=== PATIENT | male | born 1955 | race Caucasian/White ===

== ENCOUNTER 2017-10-23 14:25 | Inpatient (IN) | payer OTHER ==
--- NOTE | 2017-10-23 14:24 | EDPHY ---
H & P Time Seen by Provider: 10/23/17 14:24 Constitutional: Initial Vital Signs Temperature (C) 38.7 C H 10/23/17 14:25 Heart Rate 157 H 10/23/17 14:25 Respiratory Rate 30 H 10/23/17 14:25 Blood Pressure 120/88 H 10/23/17 14:25 O2 Sat (%) 85 L 10/23/17 14:25 O2 Delivery Mode Ventilator O2 (L/minute) 15 Allergies/Adverse Reactions: No Known Drug Allergies Allergy (Verified 10/23/17 15:49) Medical Decision Making - Diagnostics Imaging Results: Imaging Impressions Chest X-Ray 10/23/17 14:28 Impression: 1. Central line on the right appears to be extravascular into the right upper lung with large right-sided pneumothorax. The ER physician was aware of this finding. 2. ET tube and NG tube in good position. Abdomen CT 10/23/17 14:49 Impression: 1. Cirrhosis, with mild splenomegaly and diffusely heterogeneous enhancement of the liver and spleen. No definite focal lesions or ascites. 2. Atrophic pancreas, with nonspecific peripancreatic and retroperitoneal adenopathy. 3. Atherosclerotic aorta, without aneurysm. 4. Mild constipation. 5. No bowel obstruction or abdominal/pelvic abscess or fluid collection. Findings and recommendations discussed with Emergency Department physician, Jas Curry M.D., at 1620 hours, on October 23, 2017. Final report concurs with initial preliminary interpretation. Chest CT 10/23/17 14:50 Impression: 1. Right chest tube, with small residual right pneumothorax. 2. Right middle lobe and right lower lobe atelectasis, with moderate right hemothorax. 3. Left lower lobe complete opacification consistent with pneumonia. 4. Endotracheal tube above the kash. 5. Nasogastric tube in the stomach. Findings and recommendations discussed with Emergency Department physician, Jas Curry M.D., at 1620 hours, on October 23, 2017. Final report concurs with initial preliminary interpretation. Head CT 10/23/17 14:50 Impression: Negative. No acute intracranial hemorrhage, swelling or mass effect. Findings discussed with Emergency Department physician, Jas Curry MD, on , 16:14. Imaging: Discussed imaging studies w/ banquet server on call Radiologist, I viewed and interpreted images myself ED Course/Re-evaluation: CHIEF COMPLAINT: Altered mental status, nausea, vomiting HISTORY OF PRESENT ILLNESS: The patient is a 60 y/o male with a history of Hepatitis C arriving emergently via EMS for altered mental status, nausea, and vomiting onset yesterday. Per EMS , the family states that the patient arrived from [place] on Monday and appeared healthy. He vomited several times yesterday but drastically declined today. The family denies alcohol or drug use. EMS reports that the patient appears malnourished and has mottled skin on his abdomen. While en route to the emergency department the patient had O2Sats of 84% and was tachycardic. He was able to slowly talk to EMS but is a poor historian due to the altered mental status. Upon arrival, he states he is hot but provides no other information. REVIEW OF SYSTEMS: Unable to obtain due to patient's altered mental status PHYSICAL EXAM: HR, BP, O2 Sat, RR. Temp noted General Appearance: Lethargic, toxic appearing. Head: Atraumatic without scalp tenderness or obvious injury Eyes: Pupils equal, round, reactive to light and accommodation, EOMI, no trauma , no injection. Ears: Clear bilaterally, no perforation, normal landmarks Nose: Atraumatic, no rhinorrhea, clear. Throat: There is no erythema or exudates, no lesions, normal tonsils, very dry membranes moist. Neck: Supple, nontender, no lymphadenopathy. Respiratory: Accessory muscle use, diminished left-side breath sounds. No retractions, no distress, no wheezes. Cardiovascular: Regular rate and rhythm, no murmurs, rubs, or gallops. Bilateral carotid, radial, dorsalis pedis, and posterior tibial pulses intact. Good capillary refill all extremities. Gastrointestinal: Abdomen is soft, nontender, non-distended, no masses, no rebound, no guarding, no peritoneal signs. Musculoskeletal: Normal active ROM of all extremities, atraumatic. Neurological: Lethargic, not oriented. Skin: Mottled skin throughout, scattered abscesses, pale. No rashes, good turgor , no nodules on palpation. 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 See hard copy and/or "tracemaster" electronic copy for interpretation. Head CT: Normal Chest CT: Left lower lobe consolidated. Right lung is starting to be expanded but there is fluid present. Abdominopelvic CT: The liver spleen and pancreas are enhancing abnormally. This could be DIC vs. severe sepsis. There are no abscesses. Critical care time spent by me, Dr. Curry, exclusively with this patient was 90 minutes, exclusive of PA time and exclusive of procedures. The organ system at risk was respiratory and cardiovascular and I gave IVF, antibiotics, intubated, chest tube placement, and transferred the patient to the ICU to prevent worsening of the patients condition. DIFFERENTIAL DIAGNOSIS: The differential diagnosis for the patient's fever included but was not limited to pneumonia, urinary tract infection, viral syndrome, meningitis, and sepsis. MEDICAL DECISION MAKING: The patient is a 60 y/o male with a history of Hepatitis C arriving emergently via EMS for altered mental status, nausea, and vomiting onset yesterday. On exam the patient has mottled skin all over and scattered abscesses. He is tachycardic, but I doubt he is in atrial fibrillation. He is febrile, hypoxic, has diminished left-sided breath sounds, and using accessory muscles to breathe ; patient will be placed on a BiPAP for hypoxia. Patient is most likely septic. 2L IV NS, 1gm IV Rocephin, 1gm IV Vancomycin administered. Chest x-ray, head/ chest/abdomen/pelvic CT ordered. 1425: I met EMS upon arrival 1427: HR: 160, BP: 120/88, O2Sats: 85%, Temp: 38.7 degrees 1429: I interpreted EKG as sinus tachycardia with a rate of 156 1432: BiPAP with O2Sats of 87%. Patient is in respiratory distress, tachycardic , febrile, and toxic appearing. He will need to be intubated. 1435: Patient had appropriate response to Clark catheter placement 1437: Procedure: Rapid sequence intubation. Indication for the procedure was airway protection, respiratory distress. The patient was preoxygenated with 100% oxygen by BiPAP. The patient was given the following IV medications: 20mg IV Etomidate, 100mg IV succinylcholine. The patient was orally endotracheally intubated under direct visualization with a 7.5 ETT. In line stabilization was performed during the procedure. Tracheal intubation was confirmed with misting on the tube; breath sounds were auscultated equally bilaterally; appropriate color change with [place] CO2 detector. Chest X-ray shows ETT in good position. The procedure was performed by myself, Dr. Curry 1440: HR: 191, BP:129/92 1442: 75mcg IV Fentanyl administered 1446: HR: 173, BP: 129/92, O2Sats: 95% 1450: 12mg IV Adenosine administered as patient could be in supraventricular tachycardia. 1452: 100mg IV Propofol, Propofol drip, and 50mg IV Ketamine used to sedate the patient. 1453: NG tube placed. 1454: Transient blood pressure drop after sedation medication administered. 1455: Patient's lactate is 12.2; 1L IV LR administered 1456: HR: 157, BP: 83/59, O2Sats: 84% 1500: Consulted with hospitalist service, Dr. Nicole accepts admission of this patient 1504: 0.1mcg IV Phenylephrine push dose administered due to patient's hypotension. 1510: 50mg IV Ketamine administered 1511: Patient is in septic shock, central line will be placed. Procedure: Ultrasound guidance. Using the linear probe covered in a sterile sheath, a short axis of the vein was obtained. The vein was completely compressible and was identified as separate from the adjacent non-compressible arterial structure. Under real-time guidance, the introducer needle was observed up to the vein, and then punctured it. Indication: Septic shock. A timeout was observed. Full maximal sterile barrier technique was used including cap, gown, sterile gloves, large sheet, hand washing and chlorhexidine prep. The area was anesthetized with 1% lidocaine. A 7 [place] triple lumen was placed in the left internal jugular vein using standard Seldinger technique. There were no complications. Blood return low pressure, dark blood. Patient tolerated procedure well. CXR results: Inappropriate line placement, and right chest pneumothorax. Xray was interpreted by myself. Radiologist interpretation is pending. The procedure was performed by myself, Dr. Curry 1514: 0.2mcg IV Phenylephrine push dose administered 1518: IV Phenylephrine drip administered 1519: HR: 181, BP: 85/63, O2Sats: 78; Patient is not perfusing well. 1520: 50mg IV Ketamine administered 1521: I interpreted chest x-ray at bedside, patient has a right sided pneumothorax and there is an infection in the left lung. Central line removed. Chest tube will be placed. 1524: Procedure: Chest tube placement. Indication: Right-sided pneumothorax. A timeout was observed. Full maximal sterile barrier technique was used including cap, gown, sterile gloves, large sheet, hand washing and chlorhexidine prep. The area was anesthetized with 1% lidocaine with epinephrine. A 3cm skin incision was made on top of the right 5th rib at the mid-clavicular line. A 28 [place] Citizen chest tube was placed carefully over the top of the right 5th rib on the right side. The tube was sutured in place and dressed with an occlusive Vaseline gauze then dry sterile dressing. Post placement chest x-ray demonstrated the tube to be in the appropriate position. Following placement of the tube the patient's condition improved. The patient tolerated the procedure well and there were no complications. The procedure was performed by myself. 1529: Clots are expressed from the chest tube. General surgeon will be consulted to rule out an injured right internal jugular. 1531: Patient's 5th liter of fluid administered 1532: Consulted with Dr. Pascual, general surgeon, regarding this patient. He agrees to consult on this patient during his admission. 1532: HR: 170, BP: 94/69, O2Sats: 76% 1534: Patient placed on a ketamine and norepinephrine drip. He is safe to go to CT and the unit. 1540: HR: 192, BP: 107/67, O2Sats: 75% 1546: Spoke with patient's family regarding patient 1556: Consulted with Dr. Nicole regarding this patient. 1613: Spoke with radiologist regarding patient's imaging findings. Head CT is normal per Dr. Dye. 1621: Spoke with Dr. Gilbert regarding patient's CT. The liver spleen and pancreas are enhancing abnormally. This could be DIC vs. severe sepsis. There are no abscesses. I have communicated these findings to Dr. Nicole. - Data Points Laboratory Results: Laboratory Results 10/23/17 14:31 10/23/17 14:31 10/23/17 10/23/17 10/23/17 14:31 14:31 14:31 WBC RBC Hgb Hct MCV MCH MCHC RDW Plt Count MPV Neut % (Auto) Lymph % (Auto) Johnson % (Auto) Eos % (Auto) Baso % (Auto) Nucleat RBC Rel Count Absolute Neuts (auto) Absolute Lymphs (auto) Absolute Monos (auto) Absolute Eos (auto) Absolute Basos (auto) Absolute Nucleated RBC Immature Gran % Seg Neutrophils % Band Neutrophils % Lymphocytes % Monocytes % Eosinophils % Basophils % Metamyelocytes % Myelocytes % Promyelocytes % Blast Cells % Immature Gran # Absolute Seg Neuts Absolute Band Neuts Absolute Lymphocytes Absolute Monocytes Absolute Eosinophils Absolute Basophils Absolute Metamyelocyte Absolute Myelocytes Absolute Promyelocytes Absolute Plasma Cells Absolute Blast Cells Plasma Cells % Platelet Estimate PT 22.1 SEC H SEC (12.0-15.0) INR 1.93 H (0.83-1.16) APTT 30.3 SEC SEC (23.0-38.0) VBG Lactic Acid Sodium 136 mEq/L mEq/L (135-145) Potassium 3.5 mEq/L mEq/L (3.3-5.0) Chloride 97 mEq/L mEq/L (97-110) Carbon Dioxide 15 mEq/l L mEq/l (22-31) Anion Gap 24 mEq/L H mEq/L (8-16) BUN 38 mg/dL H mg/dL (7-23) Creatinine 0.9 mg/dL mg/dL (0.7-1.3) Estimated GFR > 60 Glucose 70 mg/dL mg/dL (70-100) Calcium 9.0 mg/dL mg/dL (8.5-10.4) Total Bilirubin 5.4 mg/dL H mg/dL (0.1-1.4) Conjugated Bilirubin 3.9 mg/dL H mg/dL (0.0-0.5) Unconjugated Bilirubin 1.5 mg/dL H mg/dL (0.0-1.1) Ammonia 73.0 uMOL/L H uMOL/L (9.0-30.0) 10/23/17 10/23/17 14:31 14:31 WBC 1.14 10^3/uL L 10^3/uL (3.80-9.50) RBC 5.56 10^6/uL 10^6/uL (4.40-6.38) Hgb 16.2 g/dL g/dL (13.7-17.5) Hct 46.8 % % (40.0-51.0) MCV 84.2 fL fL (81.5-99.8) MCH 29.1 pg pg (27.9-34.1) MCHC 34.6 g/dL g/dL (32.4-36.7) RDW 14.8 % % (11.5-15.2) Plt Count 75 10^3/uL L 10^3/uL (150-400) MPV 11.5 fL fL (8.7-11.7) Neut % (Auto) 40.3 % % (39.3-74.2) Lymph % (Auto) 50.0 % H % (15.0-45.0) Johnson % (Auto) 7.0 % % (4.5-13.0) Eos % (Auto) 0.9 % % (0.6-7.6) Baso % (Auto) 0.9 % % (0.3-1.7) Nucleat RBC Rel Count 0.0 % % (0.0-0.2) Absolute Neuts (auto) 0.46 10^3/uL L 10^3/uL (1.70-6.50) Absolute Lymphs (auto) 0.57 10^3/uL L 10^3/uL (1.00-3.00) Absolute Monos (auto) 0.08 10^3/uL L 10^3/uL (0.30-0.80) Absolute Eos (auto) 0.01 10^3/uL L 10^3/uL (0.03-0.40) Absolute Basos (auto) 0.01 10^3/uL L 10^3/uL (0.02-0.10) Absolute Nucleated RBC 0.00 10^3/uL 10^3/uL (0-0.01) Immature Gran % 0.9 % % (0.0-1.1) Seg Neutrophils % 15.3 % % Band Neutrophils % 1.0 % % Lymphocytes % 59.2 % % Monocytes % 22.5 % % Eosinophils % 2.0 % % Basophils % 0 % % Metamyelocytes % 0 % % Myelocytes % 0 % % Promyelocytes % 0 % % Blast Cells % 0 % % Immature Gran # 0.01 10^3/uL 10^3/uL (0.00-0.10) Absolute Seg Neuts 0.18 10^/uL L 10^/uL (1.70-6.50) Absolute Band Neuts 0.01 10^3/uL 10^3/uL (0.00-0.70) Absolute Lymphocytes 0.70 10^3/uL L 10^3/uL (1.00-3.00) Absolute Monocytes 0.27 10^3/uL L 10^3/uL (0.30-0.80) Absolute Eosinophils 0.02 10^3/uL L 10^3/uL (0.03-0.40) Absolute Basophils 0.00 10^3/uL L 10^3/uL (0.02-0.10) Absolute Metamyelocyte 0.00 10^3/mL 10^3/mL (0.00-0.00) Absolute Myelocytes 0.00 10^3/mL 10^3/mL (0.00-0.00) Absolute Promyelocytes 0.00 10^3/uL 10^3/uL (0.00-0.00) Absolute Plasma Cells 0.00 10^3/uL 10^3/uL (0.00-0.00) Absolute Blast Cells 0.00 10^3/uL 10^3/uL (0.00-0.00) Plasma Cells % 0 % % Platelet Estimate DECREASED L (ADEQ) PT INR APTT VBG Lactic Acid 12.2 mmol/L H mmol/L (0.7-2.1) Sodium Potassium Chloride Carbon Dioxide Anion Gap BUN Creatinine Estimated GFR Glucose Calcium Total Bilirubin Conjugated Bilirubin Unconjugated Bilirubin Ammonia Medications Given: Phenylephrine HCl 50 mg/ (Sodium Chloride) 250 mls @ 0 mls/hr IV CONT PATSY; Per Protocol PRN Reason: Protocol Stop: 04/21/18 15:59 Last Admin: 10/23/17 16:32 Dose: 250 mls Norepinephrine/Sodium Chloride (Norepinephrine 8 Mcg/Ml (Premix)) 500 mls @ 0 mls/hr IV CONT PATSY; Titrate PRN Reason: Protocol Stop: 04/21/18 15:59 Last Admin: 10/23/17 19:41 Dose: 500 mls Sodium Chloride (Ns) 1,000 mls @ 125 mls/hr IV CONT PATSY Stop: 04/21/18 15:59 Last Admin: 10/23/17 19:41 Dose: 1,000 mls Piperacillin/Tazobactam/Dextrose (Zosyn (Premix)) 100 mls @ 200 mls/hr IV Q6HRS PATSY PRN Reason: Protocol Stop: 11/22/17 16:29 Last Admin: 10/23/17 16:32 Dose: 100 mls Vasopressin 25 unit/ Sodium (Chloride) 251.25 mls @ 24 mls/hr IV CONT PATSY Stop: 04/21/18 17:29 Last Admin: 10/23/17 17:21 Dose: 251.25 mls Sodium Bicarbonate 150 meq/ (Dextrose) 1,000 mls @ 100 mls/hr IV CONT PATSY PRN Reason: As Directed Stop: 04/21/18 17:59 Last Admin: 10/23/17 17:47 Dose: 1,000 mls Epinephrine HCl 1 mg/ Sodium (Chloride) 251 mls @ 0 mls/hr IV CONT PATSY; Per Protocol PRN Reason: Protocol Stop: 04/21/18 17:59 Last Admin: 10/23/17 18:04 Dose: 251 mls Discontinued Medications Adenosine (Adenosine) 12 mg IVP EDNOW ONE Stop: 10/23/17 14:45 Last Admin: 10/23/17 14:44 Dose: 12 mg Amiodarone HCl (Amiodarone Hcl) 150 mg IV ONCE ONE Stop: 10/23/17 16:31 Last Admin: 10/23/17 16:30 Dose: 150 mg Etomidate (Etomidate) 20 mg IVP EDNOW ONE Stop: 10/23/17 14:35 Last Admin: 10/23/17 14:34 Dose: 20 mg Fentanyl (Sublimaze) 75 mcg IVP EDNOW ONE Stop: 10/23/17 14:43 Last Admin: 10/23/17 14:42 Dose: 75 mcg Hydrocortisone (Solucortef) 100 mg IVP ONCE ONE Stop: 10/23/17 18:16 Last Admin: 10/23/17 18:05 Dose: 100 mg Vancomycin/Sodium Chloride (Vancomycin 1 Gm (Premix)) 250 mls @ 250 mls/hr IV EDNOW ONE PRN Reason: Protocol Stop: 10/23/17 15:28 Last Admin: 10/23/17 14:29 Dose: 250 mls Ceftriaxone Sodium/Dextrose (Rocephin 1 Gm (Premix)) 50 mls @ 100 mls/hr IV EDNOW ONE PRN Reason: Protocol Stop: 10/23/17 15:00 Last Admin: 10/23/17 14:31 Dose: 50 mls Propofol (Diprivan 10 Mg/Ml (Premix)) 100 mls @ 0 mls/hr IV CONT PATSY; Titrate PRN Reason: Protocol Stop: 04/21/18 14:59 Last Admin: 10/23/17 16:26 Dose: 100 mls Norepinephrine/Sodium Chloride (Norepinephrine 8 Mcg/Ml (Premix)) 500 mls @ 0 mls/hr IV EDNOW ONE; Per Protocol PRN Reason: Protocol Stop: 10/23/17 15:13 Last Admin: 10/23/17 15:12 Dose: 500 mls Albumin Human (Flexbumin 25 % (Premix)) 100 mls @ 0 mls/hr IV ONCE ONE PRN Reason: As Directed Stop: 10/23/17 17:16 Last Admin: 10/23/17 17:21 Dose: 100 mls Vecuronium [place] 50 mg/ (Dextrose) 50 mls @ 0 mls/hr IV CONT PATSY; Per Protocol PRN Reason: Protocol Stop: 04/21/18 17:59 Last Admin: 10/23/17 18:05 Dose: 50 mls Ketamine HCl (Ketamine) 50 mg IVP EDNOW ONE Stop: 10/23/17 14:54 Last Admin: 10/23/17 14:54 Dose: 50 mg Ketamine HCl (Ketamine) 50 mg IVP EDNOW ONE Stop: 10/23/17 15:11 Last Admin: 10/23/17 15:10 Dose: 50 mg Sodium Bicarbonate (Sodium Bicarbonate) 50 meq IVP ONCE ONE Stop: 10/23/17 17:46 Last Admin: 10/23/17 18:06 Dose: 50 meq Succinylcholine Chloride (Quelicin) 100 mg IVP EDNOW ONE Stop: 10/23/17 14:37 Last Admin: 10/23/17 14:36 Dose: 100 mg Departure - Departure Disposition: [facility] Inpatient Acute Clinical Impression: Dehydration, Severe sepsis, Septic shock, Pneumothorax, right Fever Qualifiers: Fever type: due to other condition Qualified Code(s): R50.81 - Fever presenting with conditions classified elsewhere Pneumonia of left lung due to infectious organism Qualifiers: Lung location: unspecified part of lung Qualified Code(s): J18.9 - Pneumonia, unspecified organism Altered mental status Qualifiers: Altered mental status type: unspecified Qualified Code(s): R41.82 - Altered mental status, unspecified Condition: Serious Report Scribed for: Jas Curry Report Scribed by: Crissy Daly Date of Report: 10/23/17 Time of Report: 14:24
[2017-10-23] MEDS ORDERED: VANCOMYCIN HCL/NORMAL SALINE 250 ML IV ONE (14:29)
[2017-10-23] MEDS ORDERED: cefTRIAXone 1 GM/DEXTROSE 1 GM/50 ML BAG IV ONE (14:30)
[2017-10-23] MEDS ORDERED: ETOMIDATE 40 MG/20 ML INJ IVP ONE (14:34)
[2017-10-23] MEDS ORDERED: SUCCINYLCHOLINE CHLORIDE 200 MG/10 ML SYR IVP ONE ×2 (14:36→18:25)
[2017-10-23] MEDS ORDERED: PROPOFOL/EMULSION 1,000 MG/100 ML BOTTLE IV ONE (14:37)
[2017-10-23] MEDS ORDERED: fentaNYL 100 MCG/2 ML INJ IVP ONE (14:42)
[2017-10-23] MEDS ORDERED: ADENOSINE 6 MG/2 ML VIAL IVP ONE (14:44)
[2017-10-23 14:45] LABS: PLATELET COUNT 75 10^3/uL (150-400)
[2017-10-23] MEDS ORDERED: ADENOSINE 6 MG/2 ML VIAL ONE (14:46)
[2017-10-23] MEDS ORDERED: KETAMINE 200 MG/20 ML VIAL IVP ONE (14:53)
[2017-10-23] MEDS ORDERED: ACETAMINOPHEN 325 MG SUPP PR ONE (14:59)
[2017-10-23] MEDS ORDERED: PROPOFOL/EMULSION 100 ML IV SCH ×2 (15:00→16:57)
[2017-10-23 15:01] LABS: INR 1.93 (0.83-1.16); PROTIME(PATIENT) 22.1 SEC (12.0-15.0)
[2017-10-23] MEDS ORDERED: PHENYLEPHRINE HCL 100 MCG/ML SYR IVP ONE (15:01)
[2017-10-23] MEDS ORDERED: PHENYLEPHRINE 10 MG/ML SDV ONE (15:02)
[2017-10-23] MEDS ORDERED: KETAMINE 500 MG/10 ML VIAL IVP ONE (15:10)
[2017-10-23] MEDS ORDERED: NOREPINEPHRINE/NS 500 ML IV ONE (15:12)
[2017-10-23] MEDS ORDERED: IOPAMIDOL (ISOVUE-300) 100 ML BTL ONE (15:19)
[2017-10-23] MEDS ORDERED: NOREPINEPHRINE BITARTRATE 4 MG in D5W 500 ML IV SCH (15:30)
[2017-10-23] MEDS ORDERED: LR 2,000 ML IV ONE ×2 (15:39)
[2017-10-23] MEDS ORDERED: ACETAMINOPHEN 650 MG SUPP PR PRN (15:58)
[2017-10-23] MEDS ORDERED: fentaNYL 100 MCG/2 ML INJ IVP PRN (15:58)
[2017-10-23] MEDS ORDERED: MIDAZOLAM 2 MG/2 ML VIAL IVP PRN (15:58)
[2017-10-23] MEDS ORDERED: KETAMINE 500 MG in NS 500 ML IV ONE (16:00)
[2017-10-23] MEDS ORDERED: VASOPRESSIN/DEXTROSE 250 ML IV SCH (16:00)
[2017-10-23] MEDS ORDERED: PHENYLEPHRINE HCL 50 MG in NS 250 ML IV SCH (16:00)
[2017-10-23] MEDS: NOREPINEPHRINE/NS 500 ML IV SCH ×2 (16:27→19:41)
[2017-10-23] MEDS: NS 1,000 ML IV SCH ×2 (16:28→19:41)
[2017-10-23] MEDS ORDERED: AMIODARONE HCL 150 MG/3 ML VIAL IV ONE (16:30)
[2017-10-23] MEDS ORDERED: PIPERACILLIN/TAZO 4.5 GM/DEX 100 ML IV SCH ×2 (16:30→18:00)
--- NOTE | 2017-10-23 16:50 | ECHO ---
[email or web address] [address] [address] Main: [phone] Fax: Transthoracic Echocardiogram Name: DOLLY NAGY MR#: [id number] Study Date: 10/23/2017 Study Time: 04:23 PM Date of : 1955 Age: 62 year(s) Height: 167.6 cm (66 in.) Weight: 67.13 kg (148 lb.) BSA: 1.76 m2 Gender: Male Examination: Echo Indication: Septic Shock Image Quality: Contrast: Requested by: Crystal Nicole BP: 119 mmHg/55 mmHg Heart Rate: Rhythm: Atrial fibrillation Indication: Septic Shock Procedure Staff Human Resource Analyst: Raul Ayala RDCS Reading Physician: Jordan Garcia MD Requesting Provider: Conclusions: Ejection fraction 71%. No pericardial effusion. Measurements: Chambers Valvular Assessment AV/MV Valvular Assessment TV/PV Normal Normal Normal Name Value Range Name Value Range Name Value Range Ao Jemma (MM): 2.4 cm (2.2 cm-3.7 cm) IVSd (2D): 0.9 cm (0.6 cm-1.1 cm) LVDd (2D): 3.8 cm (4.2 cm-5.9 cm) LVDs (2D): 2.3 cm (2.1 cm-4 cm) LVPWd (2D): 1.0 cm (0.6 cm-1 cm) LVEF (2D): 71 (>=54 %) Continued Measurements: Findings: Left Ventricle: Normal global systolic LV function. EF is 71 %. Mitral Valve: The mitral valve is normal in appearance and function. Aortic Valve: The aortic valve is tri-leaflet and functions normally. Pericardium: No pericardial effusion. Patient: DOLLY NAGY Study Date: 10/23/2017 Page 1 of 2 04:23 PM Exam Comments: This is a limited echo to evaluate LV function and pericardial effusion. Exam was originally ordered full study but due to patient declining condition a limited was performed. . (No Signature Object) Patient: DOLLY NAGY Study Date: 10/23/2017 Page 2 of 2 04:23 PM [id number]
--- NOTE | 2017-10-23 16:54 | ASMTCMCOM ---
CM Note CM Note Notes: Patient presents to the ER per EMS appearing septic. I have met with his niece Marge to provide support and ultimately escort her to the ICU. Patient lives in [facility] and has been in [place] since Monday, 10/21. He is here to visit his mother who resides at [facility]. Marge explains that patient began feeling poorly on Monday (see ER report) and that she called 911 today when she arrived at [facility] and found patient to be "much sicker". Patient has a history of hepatitic C and IV drug use (many years ago), and Marge believes patient has been sober for many years since. Marge is available prn for contact and will be checking in re patient's condition. [place] mentioning; Marge states she is an CIV[employer] TRANSPORTATION ENGINEER and works/lives in [place] Date Signed: 10/23/2017 04:54 PM Electronically Signed By:Holly Jose RN
[2017-10-23] MEDS ORDERED: AMIODARONE A.FIB-6HR INFSN (ORDER 2/3) PREMIX IV ONE (17:00)
[2017-10-23] MEDS ORDERED: ALBUMIN 25% 100 ML SOLN IV ONE (17:04)
[2017-10-23] MEDS ORDERED: ALBUMIN 25% 100 ML IV ONE ×2 (17:15→17:30)
[2017-10-23] MEDS ORDERED: AMIODARONE HCL 150 MG/100 ML BAG (1.5 MG/ML) IV ONE (17:18)
[2017-10-23] MEDS ORDERED: VECURONIUM BROMIDE 10 MG VIAL ONE (17:21)
[2017-10-23] MEDS ORDERED: SODIUM BICARBONATE 50 MEQ/50 ML SYR ONE (17:28)
--- NOTE | 2017-10-23 17:28 | CPEKG ---
Heart Rate: 137 RR Interval: 438 P-R Interval: 196 QRSD Interval: 72 QT Interval: 216 QTC Interval: 326 P [place]: 80 QRS [place]: 70 T Wave [place]: 269 EKG Severity - BORDERLINE ECG - EKG Impression: SINUS TACHYCARDIA EKG Impression: BORDERLINE T ABNORMALITIES, DIFFUSE LEADS Electronically Signed By: Valdemar Matias 24-Oct-2017 10:36:28
[2017-10-23] MEDS ORDERED: VASOPRESSIN 25 UNIT in NS 250 ML IV SCH (17:30)
[2017-10-23] MEDS ORDERED: VECURONIUM BROMIDE 10 MG VIAL IVP ONE (17:30)
[2017-10-23] MEDS ORDERED: SODIUM BICARBONATE 50 MEQ/50 ML SYR IVP ONE (17:45)
[2017-10-23] MEDS ORDERED: SODIUM BICARBONATE 150 MEQ in D5W 1,000 ML IV SCH (18:00)
[2017-10-23] MEDS ORDERED: EPINEPHrine 1 MG in NS 250 ML IV SCH (18:00)
[2017-10-23] MEDS ORDERED: VECURONIUM BROMIDE 50 MG in D5W 50 ML IV SCH ×2 (18:00→23:30)
[2017-10-23] MEDS ORDERED: HYDROCORTISONE 100 MG/2 ML VIAL ONE (18:04)
[2017-10-23] MEDS ORDERED: HYDROCORTISONE 100 MG/2 ML VIAL IVP ONE (18:15)
[2017-10-23] MEDS ORDERED: ETOMIDATE 40 MG/20 ML INJ ONE (18:23)
[2017-10-23] MEDS ORDERED: KETAMINE 200 MG/20 ML VIAL ONE (18:24)
[2017-10-23] MEDS ORDERED: fentaNYL 100 MCG/2 ML INJ ONE (18:26)
[2017-10-23] MEDS ORDERED: VECURONIUM BROMIDE 50 MG in NS 50 ML IV SCH (18:45)
--- NOTE | 2017-10-23 18:52 | PDGENHP ---
History and Physical - Chief Complaint confusion - History of Present Illness 62 yo M with PMH of hepatitis C [place] presenting with confusion. Per report given to ER by family, patient had been in [place] since Monday and doing fairly well until he began to have n/v yesterday. Today he was noted to be confused and ill appearing and was brought to ER for further evaluation. In ER, he was not responding to questions and was noted to be mottled, hypotensive and hypoxic--initially sats were in mid 80s on 15L NRB. He was urgently intubated and due to continued hypotension a central line was attempted. Unfortunately this led to a PTX as line was extra vascular and patient had further desaturations--chest tube was placed in ER. Patient transferred to ICU with HR in the high 100s (up to 200 and appearing c/w svt), continued low saturations and hypotensive. He ultimately received adenosine, amiodarone, shocks x 2 for unstable tachycardia, 4 pressors, chest tube repositioning and then paralyzed and proned. His heart rate subsequent to all of that stabilized in the low 100s, BP improved and o2 sats on vent with paralytics onboard improved to 80%. History Information - Allergies/Home Medication List Allergies/Adverse Reactions: No Known Drug Allergies Allergy (Verified 10/23/17 15:49) I have personally reviewed and updated: family history, medical history, social history, surgical history Past Medical History: unobtainable 2/2 patients mental status - Past Medical History Additional medical history: hepatitis c - Social History Additional social history: per family, no drinking or drug use Review of Systems Review of Systems: unobtainable 2/2 patients mental status Physical Exam Physical Exam: Temp Pulse Resp BP Pulse Ox 38.7 C H 189 H 29 H 120/88 H 83 L 10/23/17 15:40 10/23/17 16:02 10/23/17 16:02 10/23/17 15:40 10/23/17 18:05 O2 (L/minute) 15 FIO2 (%) 100 Constitutional: chronically ill appearing, unkempt Eyes: PERRL, icteric sclera Ears, Nose, Mouth, Throat: poor dentition, dry mucous membranes Cardiovascular: tachycardia, No edema Respiratory: reduced air movement, bronchial breath sounds Gastrointestinal: normoactive bowel sounds, distension Genitourinary: celestin in urethra Skin: mottled, abrasion Musculoskeletal: No asymmetric calves Neurologic: other (intubated, sedated) Lab Data & Imaging Review 10/23/17 14:31 10/23/17 14:31 WBC 1.14 10^3/uL (3.80-9.50) L 10/23/17 14:31 RBC 5.56 10^6/uL (4.40-6.38) 10/23/17 14:31 Hgb 16.2 g/dL (13.7-17.5) 10/23/17 14:31 Hct 46.8 % (40.0-51.0) 10/23/17 14:31 MCV 84.2 fL (81.5-99.8) 10/23/17 14:31 MCH 29.1 pg (27.9-34.1) 10/23/17 14:31 MCHC 34.6 g/dL (32.4-36.7) 10/23/17 14:31 RDW 14.8 % (11.5-15.2) 10/23/17 14:31 Plt Count 75 10^3/uL (150-400) L 10/23/17 14:31 MPV 11.5 fL (8.7-11.7) 10/23/17 14:31 Neut % (Auto) 40.3 % (39.3-74.2) 10/23/17 14:31 Lymph % (Auto) 50.0 % (15.0-45.0) H 10/23/17 14:31 [place] % (Auto) 7.0 % (4.5-13.0) 10/23/17 14:31 Eos % (Auto) 0.9 % (0.6-7.6) 10/23/17 14:31 Baso % (Auto) 0.9 % (0.3-1.7) 10/23/17 14:31 Nucleat RBC Rel Count 0.0 % (0.0-0.2) 10/23/17 14:31 Absolute Neuts (auto) 0.46 10^3/uL (1.70-6.50) L 10/23/17 14:31 Absolute Lymphs (auto) 0.57 10^3/uL (1.00-3.00) L 10/23/17 14:31 Absolute Monos (auto) 0.08 10^3/uL (0.30-0.80) L 10/23/17 14:31 Absolute Eos (auto) 0.01 10^3/uL (0.03-0.40) L 10/23/17 14:31 Absolute Basos (auto) 0.01 10^3/uL (0.02-0.10) L 10/23/17 14:31 Absolute Nucleated RBC 0.00 10^3/uL (0-0.01) 10/23/17 14:31 Immature Gran % 0.9 % (0.0-1.1) 10/23/17 14: Seg Neutrophils % 15.3 % 10/23/17 14:31 Band Neutrophils % 1.0 % 10/23/17 14:31 Lymphocytes % 59.2 % 10/23/17 14:31 Monocytes % 22.5 % 10/23/17 14:31 Eosinophils % 2.0 % 10/23/17 14:31 Basophils % 0 % 10/23/17 14:31 Metamyelocytes % 0 % 10/23/17 14:31 Myelocytes % 0 % 10/23/17 14:31 Promyelocytes % 0 % 10/23/17 14:31 Blast Cells % 0 % 10/23/17 14:31 Immature Gran # 0.01 10^3/uL (0.00-0.10) 10/23/17 14:31 Absolute Seg Neuts 0.18 10^/uL (1.70-6.50) L 10/23/17 14:31 Absolute Band Neuts 0.01 10^3/uL (0.00-0.70) 10/23/17 14:31 Absolute Lymphocytes 0.70 10^3/uL (1.00-3.00) L 10/23/17 14:31 Absolute Monocytes 0.27 10^3/uL (0.30-0.80) L 10/23/17 14:31 Absolute Eosinophils 0.02 10^3/uL (0.03-0.40) L 10/23/17 14:31 Absolute Basophils 0.00 10^3/uL (0.02-0.10) L 10/23/17 14:31 Absolute Metamyelocyte 0.00 10^3/mL (0.00-0.00) 10/23/17 14:31 Absolute Myelocytes 0.00 10^3/mL (0.00-0.00) 10/23/17 14:31 Absolute Promyelocytes 0.00 10^3/uL (0.00-0.00) 10/23/17 14:31 Absolute Plasma Cells 0.00 10^3/uL (0.00-0.00) 10/23/17 14:31 Absolute Blast Cells 0.00 10^3/uL (0.00-0.00) 10/23/17 14: Plasma Cells % 0 % 10/23/17 14:31 Platelet Estimate DECREASED (ADEQ) L 10/23/17 14:31 PT 22.1 SEC (12.0-15.0) H 10/23/17 14:31 INR 1.93 (0.83-1.16) H 10/23/17 14:31 APTT 30.3 SEC (23.0-38.0) 10/23/17 14:31 Puncture Site LEFT RADIAL 10/23/17 15:30 Patient Temperature 37.0 DEGREES 10/23/17 15:30 pCO2 33 mmHg (34-38) L 10/23/17 15:30 pO2 49 mmHg (65-75) L 10/23/17 15:30 Total CO2 15 mEq/L (23-27) L 10/23/17 15:30 ABG pH 7.26 (7.35-7.45) L 10/23/17 15:30 ABG PO2/FiO2 Ratio 49 RATIO 10/23/17 15:30 ABG HCO3 14 mEq/L (22-26) L 10/23/17 15:30 ABG O2 Sat (Calculated) Cancelled 10/23/17 15:30 ABG O2 Saturation 76 % (92-95) L 10/23/17 15:30 ABG Base Excess -11.3 mEq/L (-2.5-2.5) L 10/23/17 15:30 VBG Lactic Acid 9.4 mmol/L (0.7-2.1) H 10/23/17 15:30 Total O2 Concentration Cancelled 10/23/17 15:30 O2 Concentration % 100 % (0-100) 10/23/17 15:30 Respiration Rate 35 10/23/17 15:30 Actual Respiration Rate Cancelled 10/23/17 15:30 Set Respiration Rate 16 10/23/17 15:30 SIMV Cancelled 10/23/17 15:30 Assist Control YES 10/23/17 15:30 Vent Rate Cancelled 10/23/17 15:30 Inspiratory Time Cancelled 10/23/17 15:30 Expiratory Pressure Cancelled 10/23/17 15:30 Tidal Volume 340 10/23/17 15:30 End Tidal CO2 20 10/23/17 15:30 PEEP 3 10/23/17 15:30 Inspiratory Pressure Cancelled 10/23/17 15:30 Peak Inspir Pressure Cancelled 10/23/17 15:30 Pressure Support Cancelled 10/23/17 15:30 Pressure Control Cancelled 10/23/17 15:30 CPAP Cancelled 10/23/17 15:30 BiPAP Cancelled 10/23/17 15:30 Mode BiPAP Cancelled 10/23/17 15:30 Inspir/Expir Ratio Cancelled 10/23/17 15:30 Sodium 136 mEq/L (135-145) 10/23/17 14:31 Potassium 3.5 mEq/L (3.3-5.0) 10/23/17 14:31 Chloride 97 mEq/L (97-110) 10/23/17 14:31 Carbon Dioxide 15 mEq/l (22-31) L 10/23/17 14:31 Anion Gap 24 mEq/L (8-16) H 10/23/17 14:31 BUN 38 mg/dL (7-23) H 10/23/17 14:31 Creatinine 0.9 mg/dL (0.7-1.3) 10/23/17 14:31 Estimated GFR > 60 10/23/17 14:31 Glucose 70 mg/dL (70-100) 10/23/17 14:31 Calcium 9.0 mg/dL (8.5-10.4) 10/23/17 14:31 Total Bilirubin 5.4 mg/dL (0.1-1.4) H 10/23/17 14:31 Conjugated Bilirubin 3.9 mg/dL (0.0-0.5) H 10/23/17 14:31 Unconjugated Bilirubin 1.5 mg/dL (0.0-1.1) H 10/23/17 14:31 Ammonia 73.0 uMOL/L (9.0-30.0) H 10/23/17 14:31 Visualized and Interpreted Chest x-ray results: Yes Chest X-Ray results: other (post line large right sided ptx, left sided consolidation) Visualized and Interpreted imaging results: Yes Interpretation: head ct: negativbe. chest ct: bilateral consolidations--right sided chest tube/hemothorax, left dense consolidation. abd ct: cirrhosis Visualized and Interpreted EKG results: Yes EKG Interpretation: Positive for: T waves inversion EKG additional interpertation: sinus tachycardia Assessment & Plan Assessment: 62 yo M with pmh of hep c and presumably cirrhosis admitted with septic shock # septic shock: with source presumably due to pna, likely aspiration given hx of recurrent n/v. 4L LR given in ER without improvement in BP. Lactate of 12 on arrival and BP now improved however requiring 4 pressors to maintain BP (NE, vasopressin, phenylephrine, epinephrine), also received albumin 200ml of 25% without change and started on stress dose steroids. Limited echo performed showing EF of 70%. Cultures pending. # aspiration pna: in setting of above, has received vanc/ctx and will be continued on vanc/zosyn/levofloxacin for now pending culture data. Dense left sided consolidation appreciated on imaging. # acute hypoxic respiratory failure: in the setting of above and worsened s/p iatrogenic ptx. Sats were low (less than 70%) for at least an hour post intubation, now paralyzed and prone and sats improved. Remains tenuous. # iatrogenic pneumothorax: occurred s/p central line placement with line found to be extravascular in right lung, chest tube in place and lung re-expanded with only minimal ptx remaining. Hemothorax also present and appreciate gen surg repositioning chest tube now draining # hep C/cirrhosis: imaging c/w cirrhosis in hx of hep c related to remote IVDA. Bili elevated, full LFTs pending. No ascites appreciated on CT. # SVT: rate now improved though still around 130, continued on amiodarone and s/ p shock x 2. EF appears normal, trending trops # lactic acidosis: profound and 2/2 septic shock, patient mottled on arrival, will continue to trend lactate # acute encephalopathy: related to sepsis and likely a component of hepatic encephalopathy given ammonia of 73. Patient would benefit from lactulose enemas but given critical illness will hold off on that until more hemodynamically stable # IP status, critically ill in ICU, status tenuous Patient new to my care. Care plan reviewed with Dr. Curry, Dr. Antonio and Dr. Triplett all present at bedside. > 90 min of critical care time spent in management of above at bedside.
--- NOTE | 2017-10-23 19:35 | GCON ---
[f rep st] CONSULTATION CRITICAL CARE CONSULTATION DATE OF CONSULTATION: 10/23/2017 HISTORY OF PRESENT ILLNESS: This patient is a 62-year-old male with a history of hepatitis C, [place] from [place]. He arrived on Monday and was feeling reasonably well, but on Monday, he complained of nausea with some vomiting and apparently had sick contacts before leaving [place]. Octavio saenz niece, whom he was visiting, is a roof cement and paint maker helper, and she saw him at home, and he seemed to be feelin g reasonably well but slept the entire day. Today, she went to see him, and he was confused and had mottled-appearing skin. His oxygen saturation was 85% on room air. She tried to get him in the vehi michael to bring him to the emergency department, but they were unsuccessful, so called EMS. When he arr ived in the emergency department, he was hypotensive and received fluid resuscitation. He was also f ebrile and had a white count of only 1.1. Radiographs showed consolidation on the left side, and his fluid resuscitation for his hypotension resulted in worsening respiratory failure. He was intubated , and a central line was attempted on the right side. This was unsuccessful and resulted in a pneumo thorax, which was also thought to be a hemothorax. [facility] He was sent to the CT scan for evaluation at that time and transferred to the ICU. On arrival i n the intensive care unit, his blood pressure remained low. He had no central access and was only on peripheral Pal-Synephrine. A right IJ central venous catheter was placed on the first attempt via u ltrasound guidance without difficulty. He was then put on Levophed and continued to have blood press ure problems while in the ICU. He was concomitantly hypoxic with oxygen saturations in the 50s or lo wer at times. A variety of ventilator maneuvers were attempted, including higher PEEP. He eventuall y was placed on paralytics and had his I to E ratio inversed to 2-1 with a PEEP of 15. During this p eriod, Dr. Triplett was at the bedside and manipulated his chest tube, which we thought was clogged. He w as able to flush that and improve the function of the chest tube, though there was no large output at the time. In addition, on arrival to the intensive care unit, he was in rapid atrial fibrillation w ith a heart rate ranging from 170-200 and irregular with a narrow complex. He was given 150 mg bolus of amiodarone while a milligram per minute drip was started. He remained at a very high rate but co ntinued to have blood pressure problems down to the 50s, so cardioversion was attempted first with 10 0 joules of biphasic, followed by 200 joules. This did slow the rate down to the 140s, and he eventu ally converted to normal sinus rhythm, but probably 15 minutes after the attempted cardioversion. Bl ood gases showed ongoing severe acidosis with a very low bicarb, but normal CO2, so he was given mario ral bicarb pushes, followed by a bicarb drip at 100 per hour. His oxygenation continued to be poor, and at the time of this dictation, was just getting prone ventilation. REVIEW OF SYSTEMS: Otherwise negative. 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 He is not known to be using IV drugs at this time, and a urine tox screen is pending. PAST SURGICAL HISTORY: Unknown. FAMILY HISTORY: Not clear at this time. SOCIAL HISTORY: Also unknown at this time. EXAM: VITAL SIGNS: His T-max was 38.7. His blood pressure now is about 116/60, though is quite vol atile and changing rapidly. Heart rate is now about 130. It appears to be a sinus tachycardia. Res piratory rate is set by the ventilator at a fixed of 30 because of the paralytics. He was in respira tory distress on my arrival, despite the ventilator, breathing about 40-45 times per minute. He does appear to have jaundice in his eyes, though his skin does not appear to be jaundiced. His pupils, h owever, were equally round and reactive to light. He was not able to see his mucous membranes very w ell. NECK: His neck appeared to be supple. There was no clear adenopathy. There was no large tawana brad in his neck. LUNGS: His breath sounds were quite coarse on arrival in the intensive care unit, but after many manipulations on the ventilator, were clear to auscultation. HEART: Initially was i rregular and changed to sinus rhythm. I did not hear any clear murmurs. ABDOMEN: Distended, but so ft, without any palpable masses. EXTREMITIES: No clubbing, cyanosis, or edema. SKIN: His skin had a variety of changes, including quite a few areas of mottled-appearing skin. On his left flank, the re was a superficial 1 cm skin wound with a large 20-30 cm area of ecchymosis. There were nodules on his shoulders of unclear etiology. His lower extremities showed evidence of probably old venous sta sis changes, without palpable purpura. NEUROLOGICAL: Exam was grossly nonfocal, though difficult to evaluate in this state. LABORATORY DATA: At this point, we have labs from earlier today at about 1431 with a white count of 1.1, hematocrit of 46.8, platelets of 75. INR of 1.9. Sodium is 136, potassium 3.5, chloride 97, an ion gap 24, BUN 38, creatinine 0.9. Total bilirubin of 5.4, with a direct bilirubin of 3.9, ammonia level of 73. A CT scan done after his chest tube was placed showed primarily consolidation in the le ft lower lobe with little effusion, some effusion in the right lung with some consolidation there and a mostly re-expanded chest on that side. A brief bedside echocardiogram was done during severe tach ycardia, but showed no obvious wall motion abnormalities and no pericardial effusion. It did show an inferior vena cava that was not dilated and had obvious respiratory collapse. An abdominal CT showe d cirrhosis with mild splenomegaly and an atrophic pancreas, but no obvious pancreatitis and no bowel obstructions, abscess or perforations. A head CT was negative. An EKG showed sinus tachycardia, wi thout obvious ST changes. ASSESSMENT/PLAN: 1. Severe septic shock. The most likely source is his lungs and probable pneumonia. He has been tr eated with Zosyn, ceftriaxone, and vancomycin. Blood cultures are pending at this time, and serial l actates are being sent. He is getting blood pressure support with appropriate medications. At this time, hydrocortisone was added because of refractory hypotension despite high-dose medications. Ther e is no evidence of adrenal insufficiency or acute coronary syndrome or neurogenic hypotension. I be lieve there is a role for some volume. He has gotten 2 boluses of albumin and may get more. This is based primarily on the appearance of his inferior vena cava, as well as his IJ during placement of t he line. 2. Atrial fibrillation. This is likely related to his underlying pulmonary issues, which was compli cated by his pneumothorax. In any case, he has converted to sinus rhythm at this time. We will cont inue his amiodarone drip, follow serial troponins, and repeat his echocardiogram once he is more hemo dynamically stable. 3. Iatrogenic pneumothorax. He appears to be stable at this time. His chest has re-expanded. His chest tube appears to be in adequate position, and Surgery has been quite helpful in managing this. We will continue him on suction at this time. I do not believe that there is tension pneumothorax ca using his hypotension at this time. 4. Cirrhosis, as noted on the CT scan. His transaminases are pending at this time. We do not know what his baseline labs are, but we may be able to obtain those through family members and will procee d accordingly. 5. Thrombocytopenia. Again, I am not sure what his baseline is. This may be simply DIC related to his underlying septic shock. Repeat set of labs is pending at this time. 6. Acute respiratory failure associated with pneumonia and severe refractory hypoxemia. He is paral yzed at this time on inverse ratio ventilation with as maximum PEEP I think he can tolerate and is li casie to be prone moving forward. ECMO is a possibility, but will see if we can stabilize him before moving to that more aggressive measure. A total of approximately 2 hours of critical care time was required for this patient separate from pr ocedures and mostly at the bedside managing the patient with severe multiorgan failure with a very po or prognosis, as well as discussion with the family. /[id number]/MODL
--- NOTE | 2017-10-23 19:50 | GPN ---
[f rep st] PROCEDURE NOTE DATE OF PROCEDURE: 10/23/2017 PROCEDURE PERFORMED: Right internal jugular central venous catheter. CONSENT: Consent was waived due to the emergent nature of the procedure. DESCRIPTION OF PROCEDURE: Using sterile Seldinger technique, a right triple-lumen catheter was place d on the second attempt while there was good visualization using ultrasound guidance. There was some difficulty due to respiratory collapse of the IJ. In either case, I was eventually able to get a go od cannulization of the vessel and advance the wire without difficulty, and a postprocedure chest x-r ay showed the catheter to be in place. There were no obvious complications. /[id number]/MODL
[2017-10-23 21:00] LABS: PLATELET COUNT 49 10^3/uL (150-400)
[2017-10-23] MEDS ORDERED: PETROLAT,WHT/MIN OIL/SOD CHL 3.5 GM OPHT.OINT EACHEYE SCH (21:00)
[2017-10-23] MEDS ORDERED: CHLORHEXIDINE GLUCONATE 15 ML UDL PO SCH (21:00)
[2017-10-23] MEDS ORDERED: FAMOTIDINE 20 MG/NACL 50 ML IV SCH (21:00)
[2017-10-23 21:15] LABS: CREATINE KINASE 406 IU/L (0-224)
[2017-10-23] MEDS ORDERED: D50W 25 GM/50 ML SYR IVP ONE ×2 (21:16→21:45)
[2017-10-23 21:27] LABS: HEPATITIS B SURFACE ANTIGEN NEGATIVE (NEGATIVE)
[2017-10-23 21:33] LABS: HEPATITIS A ANTIBODY IGM (BCH) NEGATIVE (NEGATIVE); HEPATITIS B CORE AB IGM NEGATIVE (NEGATIVE)
--- NOTE | 2017-10-23 21:35 | GCON ---
[f rep st] CONSULTATION DATE OF CONSULTATION: 10/23/2017 REFERRING PHYSICIAN: Jas Curry MD REASON FOR ADMISSION: Septic shock, possible hemothorax. HISTORY OF PRESENT ILLNESS: 62-year-old male, visiting from [place], with a significant history for hepatitis C, presents to the emergency room today with a 1-day history of nausea, vomiting, and confusion. He was found to be hypoxic and hypotensive in the emergency room where he was urgently intubated. A central line was placed in the emergency room which was complicated by a pneumothorax. A chest tube was subsequently placed disclosing a large out pouring of bloody effluent. Surgery has been requested for further chest tube management and to assess for a possible hemothorax. The patient is seen in the emergency room, a 28-[place] chest tube in place. Tube was noted to be adynamic with large serous fluid arising along side the tube rather than through the tube. The Pleur-evac shows thin serous blood-tinged fluid. PAST MEDICAL HISTORY: Hepatitis C. PAST SURGICAL HISTORY: Unknown. MEDICATIONS: Unknown. ALLERGIES: Unknown. PHYSICAL EXAMINATION: VITAL SIGNS: Temperature 38.6, blood pressure after pressor agents initiated 120/60, heart rate 130, respirations 30. GENERAL: The patient is intubated, sedated, unresponsive. HEART: Regular, tachycardic. LUNGS: Diffusely diminished. ABDOMEN: Soft, distended, nontender. EXTREMITIES: Absent bilateral radial pulses, thready bilateral femoral pulses. SKIN: Generally mottled in appearance. NEUROLOGIC: The patient is intubated , sedated. CHEST: Right chest tube minimally secured with no rhythmical respiration. The tube was subsequently adjusted and irrigated retrieving a moderate clot. The tube was re-secured to the chest with 2-0 suture. Afterwards, there was satisfactory rhythmical respiration and ongoing thin serous drainage. No active bleeding was noted. Chest x-ray: Prior manipulation showed no evidence of ongoing pneumothorax. Chest CT disclosed complete left lower lobe opacification as well as right middle and lower lobe atelectasis with retained fluid. IMPRESSION: 1. Septic shock. 2. Post-traumatic right pneumothorax status post chest tube placement. PLAN: The tube has been adjusted and modified. No further chest intervention was warranted. A femoral arterial line was placed. Please refer to separate dictated note. Care coordination was taking place at bedside with the direct casting operator service as well as the hospitalist service. Please let us know if we can be of further assistance. /[id number]/MODL MTDD
[2017-10-23 21:45] LABS: HEPATITIS C ANTIBODY TOTAL REACTIVE (NEGATIVE)
[2017-10-23] MEDS ORDERED: NOREPINEPHRINE BITARTRATE 4 MG in NS 500 ML IV SCH (23:30)
[2017-10-23] MEDS ORDERED: D10W 1,000 ML IV SCH (23:45)
[2017-10-24] MEDS ORDERED: HYDROCORTISONE 100 MG/2 ML VIAL IVP SCH
--- NOTE | 2017-10-24 01:10 | HOSPPROG ---
Hospitalist Progress Note Assessment/Plan: Hospitalist night float note Paged by RN notifying the patient with development of declining heart rate and blood pressure despite triple pressor support. Spoke with patient's proxy and niece Marge Eagle who is a physician and updated her on Jack status. Advised that he is at high risk for morbidity mortality and not likely to survive the next 24 hr. Also updated on patient's blood cultures that were positive for for a for Klebsiella pneumoniae. Patient is on vancomycin and Zosyn. Marge desired for patient to continue to be a full code status. However within just a few minutes after hanging up the phone patient's blood pressures continue to decline with SBP in the 60s. Patient was given a bolus dose of epinephrine x2 in addition to the drip. I called Marge back in advised that patient required addition of epinephrine. Patient is already prone intubated and now on for pressor support. Addition of compressions is not likely to add any quality to patient's life at this point and Marge was in agreement to hold CPR. She did desire to continue with resuscitative efforts and pressor support at this point. Marge understands that patient is likely to pass away from his acute illness despite all efforts within the next little while. We will keep her updated. RN reports she spoke with patient's ex-. Objective: Vital Signs Temp Pulse Resp BP Pulse Ox 37.7 C 88 30 H 83/62 L 100 10/24/17 00:00 10/24/17 00:00 10/24/17 00:00 10/24/17 00:00 10/23/17 19:00 Laboratory Results 10/23/17 20:00 10/23/17 23:59 10/22/17 10/23/17 10/24/17 05:59 05:59 05:59 Intake Total 4500 Output Total 22 Balance 4478 PT 22.1 SEC (12.0-15.0) H 10/23/17 14:31 INR 1.93 (0.83-1.16) H 10/23/17 14:31 ICD10 Worksheet Patient Problems: Problems Problem Status Onset Altered mental status Acute Dehydration Acute Fever Acute Pneumonia of left lung due to infectious organism Acute Pneumothorax, right Acute Septic shock Acute Severe sepsis Acute
[2017-10-24 01:17] VITALS: BP 68/55
[2017-10-24] MEDS ORDERED: VANCOMYCIN 750 MG in D5W 150 ML IV SCH (02:00)
[2017-10-24] MEDS ORDERED: AMIODARONE A.FIB-18HR INFSN (ORDER 3/3) IV ONE (02:00)
[2017-10-24] MEDS ORDERED: EPINEPHrine 1 MG/10 ML SYR IVP ONE (02:20)
[2017-10-24] MEDS ORDERED: SODIUM BICARBONATE 50 MEQ/50 ML SYR IV ONE (02:20)
--- NOTE | 2017-10-24 04:55 | GOP ---
[f rep st] OPERATIVE REPORT DATE OF OPERATION: 10/23/2017 SURGEON: Tye Triplett MD ANESTHESIA: None. PREOPERATIVE DIAGNOSIS: Septic shock. POSTOPERATIVE DIAGNOSIS: Septic shock. PROCEDURE PERFORMED: Right femoral artery arterial line placement. INDICATIONS: 62-year-old male admitted in septic shock. He remains intubated in critical care in the intensive care unit. Surgery has been requested for A- line placement. DESCRIPTION OF PROCEDURE: No palpable radial pulses were identifiable. The groin pulses were both weak yet palpable. The right groin was sterilely prepped and draped with ChloraPrep. The artery was directly punctured. A guidewire passed smoothly into the artery without resistance. A small skin aleksandar was created and the femoral arterial catheter passed through to its hub. This was secured to the skin with a silk suture. The catheter was connected to the monitor showing adequate arterial waveform. Sterile dressing was applied. No immediate complications occurred. /[id number]/MODL MTDD
[2017-10-24] MEDS ORDERED: ENOXAPARIN 40 MG/0.4 ML SYR SC SCH (09:00)
[2017-10-24] MEDS ORDERED: PANTOPRAZOLE SODIUM 40 MG VIAL IVP SCH (09:00)
--- NOTE | 2017-11-03 08:20 | GDS ---
[f rep st] DISCHARGE SUMMARY SUMMARY Patient without a local PCP. Date of : 10/24/2017, at 0123. PRIMARY DIAGNOSIS: Klebsiella bacteremia & pneumonia. SECONDARY DIAGNOSES: 1. Septic shock. 2. Multiorgan failure. 3. Acute hypoxic respiratory failure. 4. Cirrhosis. 5. Hepatitis C virus. 6. Iatrogenic pneumothorax, status post chest tube. BRIEF HOSPITAL COURSE: The patient is a 62-year-old gentleman who was traveling from [place] to visit family here locally in [place] and appeared to be doing fairly well and suddenly developed some increased work of breathing and appeared to be acutely ill. He came to the emergency department and he was noted to be with overwhelming sepsis. He subsequently developed acute respiratory failure. He was hypotensive, meeting all sepsis criteria, and was also to be noted to be toxic in appearance and mottled. The patient was quickly intubated and a central line was placed. He developed a pneumothorax during the procedure, which was quickly treated with a chest tube. The patient was started on broad-spectrum antibiotics and received appropriate IV fluid bolus and continued to be significantly hypotensive and shocky. The patient was admitted to the ICU in critical condition. Despite multiple pressors, the patient continued to do poorly. The patient initially was a full code. However , over the course of the risk management specialist, the patient continued to deteriorate despite attempts at fluid resuscitation, pressor support. Family elected to make the patient a DNR/DNI and he at 0123. CONSULTANTS: 1. Dr. Triplett with General Surgery. 2. Dr. Antonio with Pulmonary Critical Care. Greater than 30 minutes spent in direct patient care and discussions with the patient and family. Total critical care time on 10/24/2017: 35 minutes. /[id number]/MODL MTDD
== END 2017-10-24 02:21 | disposition expired | DRG 871 ==
LOC: F2N 16:10
PROVIDERS: ADMIT Internal Medicine; ATTEND Internal Medicine
PROC: 5A1935Z Respiratory Ventilation, Less than 24 Consecutive Hours (ICD-10-PCS; principal; 2017-10-23)
PROC: 0BH17EZ Insertion of Endotracheal Airway into Trachea, Via Natural or Artificial Opening (ICD-10-PCS; principal; 2017-10-23)
PROC: 0W9930Z Drainage of Right Pleural Cavity with Drainage Device, Percutaneous Approach (ICD-10-PCS; principal; 2017-10-23)
PROC: 04HK33Z Insertion of Infusion Device into Right Femoral Artery, Percutaneous Approach (ICD-10-PCS; 2017-10-23)
PROC: 05HM33Z Insertion of Infusion Device into Right Internal Jugular Vein, Percutaneous Approach (ICD-10-PCS; 2017-10-23)
PROC: 30233N1 Transfusion of Nonautologous Red Blood Cells into Peripheral Vein, Percutaneous Approach (ICD-10-PCS; 2017-10-23)
DX: A41.89 Other specified sepsis (principal); J69.0 Pneumonitis due to inhalation of food and vomit; R65.21 Severe sepsis with septic shock; G93.49 Other encephalopathy; J96.00 Acute respiratory failure, unspecified whether with hypoxia or hypercapnia; J95.811 Postprocedural pneumothorax; B19.10 Unspecified viral hepatitis B without hepatic coma; B96.1 Klebsiella pneumoniae [K. pneumoniae] as the cause of diseases classified elsewhere; R06.03 Acute respiratory distress; E86.0 Dehydration; K74.60 Unspecified cirrhosis of liver; I48.91 Unspecified atrial fibrillation
CPT/HCPCS: 80307; 82947-QW; 96374; G0472; G0480; J0153; J0171; J0282; J0330; J0696; J1720; J2370; J2543; J2704; J3010; J3370; P9016; P9047; Q9967